=== PATIENT | female | born 1975 | race American Indian/Alaskan Native ===

== ENCOUNTER 2017-11-08 10:01 | Outpatient (CLI) | payer BC ==
--- NOTE | 2017-11-08 12:07 | Mammography Report ---
Screening mammogram: Routine views are compared to prior exams back to 2014. The patient has a generally dense and symmetrically distributed fibroglandular pattern. Compared to her 2016 exam there is an enlarging asymmetry in the inferior right breast which appears somewhat circumscribed and elongated. In the superior breast only seen in the MLO view there is a circumscribed asymmetry that is only clearly visualized in the MLO projection and may be larger than seen on prior exam in 2016. CAD used. Impression: Right breast asymmetries. Recommendation: Additional compression imaging of the right breast and breast ultrasound. BI-RADS CATEGORY: 0 = Needs additional imaging evaluation ACR BI-RADS MAMMOGRAPHIC CODES: 0 = Needs additional imaging evaluation; 1 = Negative; 2 = Benign; 3 = Probably benign; 4 = Suspicious; 5 = Malignant; 6 = Known biopsy-proven malignancy COMMENT: 1. Dense breast tissue, i.e., adenosis, fibrocystic changes, etc., may obscure an underlying neoplasm. 2. Approximately 10% of cancers are not detected with mammography. 3. A negative mammography report should not delay biopsy if a clinically suspicious mass is present.
== END 2017-11-08 10:02 | disposition home or self-care (01) ==
LOC: SPVWC 10:01
PROVIDERS: ATTEND Obstetrics & Gynecology
DX: Z12.31 Encounter for screening mammogram for malignant neoplasm of breast (principal)
CPT/HCPCS: 77067

== ENCOUNTER 2017-11-15 14:47 | Outpatient (CLI) | payer BC ==
--- NOTE | 2017-11-15 16:25 | Ultrasound Report ---
RIGHT DIGITAL DIAGNOSTIC MAMMOGRAM and RIGHT BREAST ULTRASOUND: 11/15/17 14:47:00 CLINICAL: Recalled for asymmetries. COMPARISON:11/08/17 screening FINDINGS: ML and spot compression MLO and CC views were performed. An oval partially circumscribed asymmetry persists at 6 o'clock but no asymmetry persists in the upper breast on the MLO view. Ultrasound of the right breast was performed and demonstrated 2 solid oval hypoechoic masses at 6:30 o'clock 6 cm from the nipple. The masses are contiguous and measure 6 x 4 x 4 mm and 6 x 6 x 4 mm. The masses correlate with the mammographic asymmetry. IMPRESSION: Two solid 6 mm right breast masses at 6:30 o'clock 6 cm from the nipple. BI-RADS CATEGORY: 4A--Mildly Suspicious RECOMMENDATION: Ultrasound guided needle core biopsy of the right breast. I discussed the options of ultrasound surveillance versus needle biopsy and the patient expressed a desire to have needle biopsies performed. ACR BI-RADS MAMMOGRAPHIC CODES: 0 = Needs additional imaging evaluation; 1 = Negative; 2 = Benign; 3 = Probably benign; 4 = Suspicious; 5 = Malignant; 6 = Known biopsy-proven malignancy COMMENT: 1. Dense breast tissue, i.e., adenosis, fibrocystic changes, etc., may obscure an underlying neoplasm. 2. Approximately 10% of cancers are not detected with mammography. 3. A negative mammography report should not delay biopsy if a clinically suspicious mass is present. COMMENT: Patient follow-up letters are generated via our [employer] application.
== END 2017-11-15 14:48 | disposition home or self-care (01) ==
LOC: SPVWC 14:47
PROVIDERS: ATTEND Obstetrics & Gynecology
DX: N63.10 Unspecified lump in the right breast, unspecified quadrant (principal); N64.89 Other specified disorders of breast

== ENCOUNTER 2017-11-22 13:03 | Outpatient (CLI) | payer BC ==
--- NOTE | 2017-11-22 14:45 | History and Physical Report ---
History of Present Illness Date of examination: 11/22/17 Chief complaint: mammo0 nodule
--- NOTE | 2017-11-22 14:46 | Procedure Note ---
Date of procedure: 11/22/17 Pre-op diagnosis: rt nodule Post-op diagnosis: same Procedure: u/s guided bx Anesthesia: local Surgeon: YNES FERNANDEZ Estimated blood loss: none Pathology: list (bx specimen) Specimen disposition: to lab Condition: stable Disposition: same day
--- NOTE | 2017-11-22 14:57 | Mammography Report ---
Ultrasound guided right breast ultrasound, marker placement, mammogram: Patient presents with a ultrasound finding in the 6:30 location of the right breast. This was identified and a lateral approach is made. The scan is draped and cleansed with Betadine. 1% lidocaine infiltrated. A 13-gauge guide was percutaneously placed in good position and ultrasound guidance. A 14-gauge Bard biopsy spring loaded device was used to take multiple sections through the lesion under ultrasound guidance. A marker was placed under ultrasound guidance. A two-view mammogram confirm positioning of the marker. No hematoma identified. No complication occurred during procedure. Patient informed concerning followup care and discharged.
== END 2017-11-22 13:04 | disposition home or self-care (01) ==
LOC: SPVWC 13:03
PROVIDERS: ATTEND Obstetrics & Gynecology
DX: D24.1 Benign neoplasm of right breast (principal)
CPT/HCPCS: 19083; 77065; 88305; A4648